=== PATIENT | female | born 1965 | race Hispanic/Latino ===

== ENCOUNTER → 2024-03-15 | Day surgery (SDC) | payer MEDICARE, OTHER ==
[~2024-03-15] MED LIST: GLIPIZIDE ER5 MG PO; GLUCAGON FOR INJ 1 MG VIAL ONE; HYOSCYAMINE SULFATE 0.5 MG/ML INJ ONE; LIDOCAINE HCL 2% LOCAL INJ 5 ML SDV VIAL INJ ONE; PROPOFOL IV EMULSION 50 ML IV ONE; TRADJENTA5 MG PO; TRULICITY1.5 MG/0.5 INJ; VENTOLIN HFA18 GM INH
[2024-03-15] MEDS: LACTATED RINGER'S 1,000 ML ONE (12:14)
[2024-03-15 13:52] VITALS: TEMP 97.4
[2024-03-15 14:25] VITALS: BP 124/80; PULSE 82; RESP 18; O2SAT 97
== END | disposition home or self-care (01) ==
LOC: OR 11:17
PROVIDERS: ATTEND Internal Medicine Gastroenterology
DX: Z12.11 Encounter for screening for malignant neoplasm of colon (principal); D12.4 Benign neoplasm of descending colon; D12.8 Benign neoplasm of rectum; K59.09 Other constipation; K64.8 Other hemorrhoids; Z71.3 Dietary counseling and surveillance; E11.9 Type 2 diabetes mellitus without complications; R06.02 Shortness of breath; R47.9 Unspecified speech disturbances; Z71.89 Other specified counseling; Z79.84 Long term (current) use of oral hypoglycemic drugs; Z79.85 Long-term (current) use of injectable non-insulin antidiabetic drugs; Z79.899 Other long term (current) drug therapy; Z87.440 Personal history of urinary (tract) infections
CPT/HCPCS: 45385; 88305; 93005; J1610; J1980; J2003; J2704; J7121; 45378